=== PATIENT | male | born 1960 | race African-American/Black ===

== ENCOUNTER 2018-07-25 18:58 | Inpatient (IN) | payer MEDICAID, OTHER ==
[~2018-07-25] VITALS: Ht 177.8 cm; Wt 60.8 kg
[~2018-07-25 18:58] MED LIST: CYM20 PO; IRON1CAP21 PO
[2018-07-25 19:58] LABS: BASOPHILS % 0.6 % (0.0-2.0); EOSINOPHILS % 2.3 % (0.0-5.0); HEMATOCRIT. 39.3 % (42.0-52.0); HEMOGLOBIN. 13.4 g/dL (14.0-18.0); LYMPHOCYTES % 41.4 % (20.0-50.0); MEAN CORPUSCULAR HEMOGLOBIN 34.2 pg (28.0-32.0); MEAN CORPUSCULAR VOLUME 100.6 fL (80.0-94.0); MEAN PLATELET VOLUME 7.6 fl (7.4-10.4); MONOCYTES % 11.4 % (2.0-8.0); NEUTROPHILS % 44.3 % (40.0-76.0); PLATELET 284 x1000/uL (130-400); RED BLOOD CELL COUNT 3.91 mill/uL (4.7-6.1); RED CELL DISTRIBUTION WIDTH 16.6 % (11.6-14.6)
[2018-07-25 20:04] LABS: CHLORIDE 106 mEq/L (98-107)
[2018-07-25] MEDS ORDERED: ACETAMINOPHEN WITH CODEINE 300/30MG TABLET PO ONE (20:45)
[2018-07-25] MEDS ORDERED: POTASSIUM CHLORIDE 20MEQ TABLET SR PO ONE (20:45)
[2018-07-25 22:23] VITALS: BP 132/88
[2018-07-25 22:29] VITALS: BP 132/88
[2018-07-25] MEDS ORDERED: QUET200T PO (23:32)
[2018-07-25] MEDS ORDERED: AMLO5TAB88 PO (23:33)
[2018-07-26] VITALS: BP 114/64
[2018-07-26] MEDS ORDERED: ONDANSETRON HCL 4MG/2ML INJ IV PRN (01:45)
[2018-07-26] MEDS ORDERED: GUAIFENESIN 200MG/10ML SUGAR FREE UDC PO PRN (01:45)
[2018-07-26] MEDS ORDERED: DOCUSATE SODIUM 100MG CAPSULE PO PRN (01:45)
[2018-07-26] MEDS ORDERED: HYDROCODONE/ACETAMINOPHEN 5/325MG TABLET PO PRN (01:45)
[2018-07-26] MEDS ORDERED: ACETAMINOPHEN 325MG TABLET PO PRN (01:45)
[2018-07-26] MEDS ORDERED: IPRATROPIUM/ALBUTEROL 0.5-3(2.5)MG/3ML NEB INH PRN (01:45)
[2018-07-26] MEDS ORDERED: CLONIDINE 0.1MG TABLET PO PRN (01:45)
[2018-07-26] MEDS ORDERED: MAGNESIUM/ALUMINUM HYDROXIDE/SIMETHICONE 30ML UDC PO PRN (01:45)
[2018-07-26 04:00] VITALS: BP 127/85
[2018-07-26 08:00] VITALS: BP 117/75
[2018-07-26] MEDS ORDERED: PNEUMOCOCCAL 23-VAL P-SAC VAC 0.5 ML IM ONE (08:00)
[2018-07-26] MEDS ORDERED: ENOXAPARIN 40MG/0.4ML SYR SUBCUT SCH (09:00)
[2018-07-26] MEDS ORDERED: ASPIRIN 81MG EC TABLET PO SCH (09:00)
[2018-07-26] MEDS ORDERED: INFLUENZA VIRUS VACCINE(AFLURIA) 0.5ML SYR IM ONE (10:00)
[2018-07-26 10:12] LABS: BASOPHILS % 1.6 % (0.0-2.0); EOSINOPHILS % 3.3 % (0.0-5.0); HEMATOCRIT. 42.8 % (42.0-52.0); HEMOGLOBIN. 14.7 g/dL (14.0-18.0); LYMPHOCYTES % 37.1 % (20.0-50.0); MEAN CORPUSCULAR HEMOGLOBIN 34.7 pg (28.0-32.0); MEAN CORPUSCULAR VOLUME 101.1 fL (80.0-94.0); MEAN PLATELET VOLUME 7.7 fl (7.4-10.4); MONOCYTES % 11.3 % (2.0-8.0); NEUTROPHILS % 46.7 % (40.0-76.0); PLATELET 311 x1000/uL (130-400); RED BLOOD CELL COUNT 4.24 mill/uL (4.7-6.1); RED CELL DISTRIBUTION WIDTH 16.9 % (11.6-14.6)
[2018-07-26 10:41] LABS: CHLORIDE 107 mEq/L (98-107)
[2018-07-26 10:50] LABS: HDL CHOLESTEROL 53 mg/dL (40-59)
[2018-07-26 10:55] LABS: CREATINE KINASE 133 IU/L (39-308)
[2018-07-26 10:56] LABS: CREATINE KINASE MB FRACTION < 1.0 ng/mL (0.5-3.6)
[2018-07-26 11:15] LABS: LDL CHOLESTEROL 79 mg/dL (5-100)
[2018-07-26 12:00] VITALS: BP 122/79
[2018-07-26 13:01] VITALS: BP 127/85
[2018-07-26] MEDS ORDERED: REGADENOSON 0.4 MG/5 ML IV NR (14:00)
[2018-07-26 15:54] LABS: CREATINE KINASE 135 IU/L (39-308)
[2018-07-26 15:55] LABS: CREATINE KINASE MB FRACTION 1.1 ng/mL (0.5-3.6)
[2018-07-26] MEDS ORDERED: QUETIAPINE FUMARATE 100MG TABLET PO SCH (21:00)
== END 2018-07-26 15:21 | disposition left against medical advice (07) | DRG 203 ==
LOC: ER 19:23 → 5WST 20:51 → EDBEDREQ 20:58 → ENRESERV 21:43
PROVIDERS: ADMIT Internal Medicine; ATTEND Internal Medicine
DX: R07.9 Chest pain, unspecified (principal); E44.1 Mild protein-calorie malnutrition; D64.9 Anemia, unspecified; E11.9 Type 2 diabetes mellitus without complications; E87.6 Hypokalemia; F17.200 Nicotine dependence, unspecified, uncomplicated; Z53.21 Procedure and treatment not carried out due to patient leaving prior to being seen by health care provider; I10 Essential (primary) hypertension; F32.9 Major depressive disorder, single episode, unspecified; Z79.899 Other long term (current) drug therapy; Z98.84 Bariatric surgery status; Z71.6 Tobacco abuse counseling; Z68.1 Body mass index [BMI] 19.9 or less, adult
CPT/HCPCS: 36415; 71045; 80048; 80053; 80061; 82550; 82553; 83036; 83735; 84443; 84484; 85025; 90686; 90732; 93005; 93306; 93970; 96372; 99285; J1650

== ENCOUNTER 2018-08-03 17:50 | Emergency (ER) | payer OTHER ==
[~2018-08-03] VITALS: Ht 177.8 cm; Wt 61.0 kg
[~2018-08-03 17:50] MED LIST changes: +AMLO5TAB88 PO; -CYM20 PO; -IRON1CAP21 PO; +QUET200T PO
[2018-08-03 18:03] VITALS: BP 129/92
[2018-08-03] MEDS ORDERED: ACETAMINOPHEN 500MG TABLET PO ONE (20:45)
== END 2018-08-03 20:56 | disposition home or self-care (01) ==
LOC: ER 17:50
DX: R04.0 Epistaxis (principal); D64.9 Anemia, unspecified; E11.9 Type 2 diabetes mellitus without complications; I10 Essential (primary) hypertension; F17.200 Nicotine dependence, unspecified, uncomplicated
CPT/HCPCS: 99282

== ENCOUNTER 2019-07-30 10:40 | Emergency (ER) | payer OTHER ==
[~2019-07-30] VITALS: Ht 180.3 cm; Wt 60.0 kg
[2019-07-30 12:52] VITALS: BP 156/89
== END 2019-07-30 12:53 | disposition home or self-care (01) ==
LOC: ER 10:40
DX: B34.9 Viral infection, unspecified (principal); J34.89 Other specified disorders of nose and nasal sinuses; D64.9 Anemia, unspecified; F32.9 Major depressive disorder, single episode, unspecified; E11.9 Type 2 diabetes mellitus without complications; I10 Essential (primary) hypertension; Z98.890 Other specified postprocedural states; F17.200 Nicotine dependence, unspecified, uncomplicated
CPT/HCPCS: 99282

== ENCOUNTER 2020-06-15 20:50 | Emergency (ER) | payer OTHER ==
[~2020-06-15] VITALS: Ht 180.3 cm; Wt 64.0 kg
[2020-06-15] MEDS ORDERED: KETOROLAC 30MG/ML VIAL IV STA (23:07)
[2020-06-15] MEDS ORDERED: SODIUM CHLORIDE 0.9% 1,000 ML IV ONE (23:07)
[2020-06-15 23:57] LABS: BASOPHILS % 1.7 % (0.0-2.0); EOSINOPHILS % 1.3 % (0.0-5.0); HEMATOCRIT. 36.9 % (42.0-52.0); HEMOGLOBIN. 12.8 g/dL (14.0-18.0); LYMPHOCYTES % 37.3 % (20.0-50.0); MEAN CORPUSCULAR HEMOGLOBIN 33.9 pg (28.0-32.0); MEAN CORPUSCULAR VOLUME 97.5 fL (80.0-94.0); MEAN PLATELET VOLUME 7.6 fl (7.4-10.4); MONOCYTES % 12.3 % (2.0-8.0); NEUTROPHILS % 47.4 % (40.0-76.0); PLATELET 344 x1000/uL (130-400); RED BLOOD CELL COUNT 3.78 mill/uL (4.7-6.1); RED CELL DISTRIBUTION WIDTH 15.7 % (11.6-14.6)
[2020-06-16 00:05] LABS: CHLORIDE 107 mEq/L (98-107)
[2020-06-16 00:10] LABS: ETHANOL BLOOD < 10 mg/dL
[2020-06-16 01:30] VITALS: BP 144/87
[2020-06-16 01:33] LABS: CLARITY URINE CLEAR (CLEAR); COLOR URINE YELLOW (YELLOW); KETONES URINE NEGATIVE (NEGATIVE); LEUKOCYTE ESTERASE URINE NEGATIVE (NEGATIVE); NITRITE URINE NEGATIVE (NEGATIVE); OCCULT BLOOD URINE NEGATIVE (NEGATIVE); PROTEIN URINE NEGATIVE (NEGATIVE); SPECIFIC GRAVITY URINE 1.023 (1.005-1.030)
[2020-06-16 01:45] LABS: *AMPHETAMINES SCREEN URINE NEGATIVE (NEGATIVE); *BARBITURATES SCREEN URINE NEGATIVE (NEGATIVE); *BENZODIAZEPINES SCREEN URINE NEGATIVE (NEGATIVE)
[2020-06-16 01:46] LABS: *COCAINE SCREEN URINE NEGATIVE (NEGATIVE); CANNABINOID URINE SCREEN NEGATIVE (NEGATIVE); METHADONE URINE SCREEN NEGATIVE (NEGATIVE); OPIATES URINE SCREEN PRESUMTIVE POSITIVE (NEGATIVE); PHENCYCLIDINE URINE SCREEN NEGATIVE (NEGATIVE)
[2020-06-16] MEDS ORDERED: IOHEXOL-300 100 ML BOTTLE ONE (06:36)
== END 2020-06-16 02:25 | disposition home or self-care (01) ==
LOC: ER 21:05
DX: N43.3 Hydrocele, unspecified (principal); R10.32 Left lower quadrant pain; E11.9 Type 2 diabetes mellitus without complications; I10 Essential (primary) hypertension
CPT/HCPCS: 36415; 74177; 76870; 80053; 80305; 80320; 81003; 83605; 83690; 84145; 85025; 86850; 86900; 86901; 87040; 93005; 93976; 96361; 96374; 99285; J1885; J7030; Q9967; G0480

== ENCOUNTER 2022-05-28 02:09 | Emergency (ER) | payer MEDICAID, OTHER ==
[~2022-05-28] VITALS: Ht 180.3 cm; Wt 57.3 kg
[2022-05-28 02:17] VITALS: BP 126/92
== END 2022-05-28 05:19 | disposition home or self-care (01) ==
LOC: ER 02:09
DX: R04.0 Epistaxis (principal); E11.9 Type 2 diabetes mellitus without complications; I10 Essential (primary) hypertension
CPT/HCPCS: 30901; 99282; 99284

== ENCOUNTER 2023-12-02 14:13 | Emergency (ER) | payer MEDICAID ==
[~2023-12-02] VITALS: Ht 180.3 cm; Wt 58.0 kg
[2023-12-02 14:19] VITALS: BP 124/97; PULSE 105; RESP 19; TEMP 98; O2SAT 99
== END 2023-12-02 16:02 | disposition left against medical advice (07) ==
LOC: ER 14:13
DX: J34.89 Other specified disorders of nose and nasal sinuses (principal); Z53.21 Procedure and treatment not carried out due to patient leaving prior to being seen by health care provider
CPT/HCPCS: 99281

== ENCOUNTER 2025-08-26 13:33 | Inpatient (IN) | payer MEDICAID ==
[~2025-08-26] VITALS: Ht 180.3 cm; Wt 58.3 kg
[2025-08-26 14:28] LABS: BASOPHILS % 1.3 % (0.0-2.0); EOSINOPHILS % 2.3 % (0.0-5.0); HEMATOCRIT. 39.1 % (42.0-52.0); HEMOGLOBIN. 13.0 g/dL (14.0-18.0); LYMPHOCYTES % 14.7 % (20.0-50.0); MEAN PLATELET VOLUME 7.6 fl (7.4-10.4); MONOCYTES % 12.9 % (2.0-8.0); NEUTROPHILS % 68.8 % (40.0-76.0); PLATELET 347 x1000/uL (130-400); RED BLOOD CELL COUNT 3.99 mill/uL (4.7-6.1); RED CELL DISTRIBUTION WIDTH 14.4 % (11.6-14.6)
[2025-08-26 14:45] LABS: CREATININE 1.0 mg/dL (0.6-1.3); UREA NITROGEN BLOOD 12 mg/dL (9-23)
[2025-08-26 14:46] LABS: TROPONIN I HIGH SENSITIVITY 15 ng/L (3.0-53)
[2025-08-26 14:47] LABS: ASPARTATE AMINOTRANSFERASE 21 IU/L (<34); BILIRUBIN DIRECT 0.1 mg/dL (<=3.0); BILIRUBIN TOTAL 0.3 mg/dL (0.1-1.0); PROTEIN TOTAL 7.0 g/dL (6.0-8.3)
[2025-08-26] MEDS: IPRATROPIUM/ALBUTEROL 0.5-3(2.5)MG/3ML NEB HHN ONE ×2 (15:45→17:35)
[2025-08-26] MEDS: IOHEXOL-350 100 ML BOTTLE ONE (16:22)
[2025-08-26 17:21] LABS: TROPONIN I HIGH SENSITIVITY 17 ng/L (3.0-53)
[2025-08-26 17:35] VITALS: PULSE 88; RESP 18; O2SAT 98
[2025-08-26] MEDS: AZITHROMYCIN 500MG/250ML 250 ML IV SCH (17:52)
[2025-08-26 20:00] VITALS: BP_SYST 116; BP_DIAS 67; BP_DIAS 68; PULSE 92; PULSE 98; RESP 18; TEMP 37.1964; TEMP 37.2; O2SAT 98
[2025-08-26] MEDS ORDERED: HYDROCODONE/ACETAMINOPHEN 5/325MG TABLET PO PRN (22:00)
[2025-08-26] MEDS ORDERED: ONDANSETRON HCL 4MG/2ML INJ IV PRN (22:00)
[2025-08-26] MEDS ORDERED: IOHEXOL-350 100 ML BOTTLE ONE (22:11)
[2025-08-27] VITALS: BP 122/79; PULSE 78; RESP 19; TEMP 36.7
[2025-08-27 02:03] LABS: HEMATOCRIT. 37.0 % (42.0-52.0); HEMOGLOBIN. 12.2 g/dL (14.0-18.0); MEAN PLATELET VOLUME 7.9 fl (7.4-10.4); PLATELET 302 x1000/uL (130-400); RED BLOOD CELL COUNT 3.80 mill/uL (4.7-6.1); RED CELL DISTRIBUTION WIDTH 15.0 % (11.6-14.6)
[2025-08-27 02:07] LABS: CREATININE 0.9 mg/dL (0.6-1.3)
[2025-08-27 02:08] LABS: UREA NITROGEN BLOOD 11 mg/dL (9-23)
[2025-08-27 04:00] VITALS: BP 124/78; RESP 18; TEMP 36.2
[2025-08-27] MEDS: BUPROPION HCL 75MG TABLET PO SCH ×2 (09:00→22:00)
[2025-08-27] MEDS: METHYLPREDNISOLONE SOD SUCC 40MG/ML (ACT-O-VIAL) IV SCH (09:30)
[2025-08-27] MEDS: ERGOCALCIFEROL 50000UNITS CAPSULE PO SCH (10:15)
[2025-08-27] MEDS: AMLODIPINE 5MG TABLET PO SCH (10:16)
[2025-08-27] MEDS: ENOXAPARIN 40MG/0.4ML SYR SUBCUT SCH (10:17)
[2025-08-27 14:22] LABS: BAND% 1.0 % (1.0-6.0); EOSINOPHILS % MANUAL 1.0 % (0.0-5.0); LYMPHOCYTES % MANUAL 27.0 % (20.0-50.0); MONOCYTES % MANUAL 22.0 % (2.0-8.0); NEUTROPHILS % MANUAL 49.0 % (45.0-75.0); PLATELET ESTIMATE NORMAL
[2025-08-27 16:00] VITALS: BP 112/81; PULSE 93; RESP 18; TEMP 36.1; O2SAT 99
[2025-08-27] MEDS: PREGABALIN 75MG CAPSULE PO SCH (18:57)
[2025-08-27] MEDS: QUETIAPINE FUMARATE 50MG TABLET PO SCH (18:58)
[2025-08-27 20:00] VITALS: BP 111/69; PULSE 96; RESP 19; TEMP 36.6; O2SAT 100
[2025-08-27 21:13] VITALS: PULSE 79; RESP 20; O2SAT 99
[2025-08-27] MEDS: IPRATROPIUM/ALBUTEROL 0.5-3(2.5)MG/3ML NEB HHN SCH (21:13)
[2025-08-27] MEDS: BUDESONIDE 0.5MG/2ML NEB HHN SCH (21:13)
[2025-08-28] VITALS (11 sets, daily range): BP systolic 94–152; BP diastolic 67–93; PULSE 55–95; RESP 15–20; TEMP 36.2–37.1; O2SAT 95–100
[2025-08-28] MEDS ORDERED: MUPI22OI2 TP (04:51)
[2025-08-28] MEDS ORDERED: MIRT-89 PO (04:51)
[2025-08-28] MEDS ORDERED: VARE1TAB21 PO (04:51)
[2025-08-28] MEDS ORDERED: DULO30CA52 PO (04:51)
[2025-08-28] MEDS ORDERED: CHOL125C6 (04:51)
[2025-08-28] MEDS ORDERED: BUPR-46 PO (04:51)
[2025-08-28] MEDS ORDERED: PREG75CA PO (04:51)
[2025-08-28] MEDS: IPRATROPIUM/ALBUTEROL 0.5-3(2.5)MG/3ML NEB HHN SCH (09:45)
[2025-08-28] MEDS: POTASSIUM CHLORIDE 20MEQ TABLET SR PO NR (13:42)
[2025-08-28] MEDS ORDERED: NALOXONE HCL 0.4MG/ML VIAL IV PRN (13:45)
[2025-08-28] MEDS ORDERED: METH4TAB95 MT (15:11)
[2025-08-28] MEDS ORDERED: ALBU18HF2 IH (15:11)
[2025-08-29] MEDS ORDERED: ENOXAPARIN 30MG/0.3ML SYR SUBCUT SCH (09:00)
== END 2025-08-28 16:15 | disposition home or self-care (01) | DRG 140 ==
LOC: ER 13:33 → EDBEDREQ 16:54 → 6WST 21:00
PROVIDERS: ADMIT Internal Medicine; ATTEND Internal Medicine
DX: J44.1 Chronic obstructive pulmonary disease with (acute) exacerbation (principal); D64.9 Anemia, unspecified; E11.9 Type 2 diabetes mellitus without complications; F32.A Depression, unspecified; F17.210 Nicotine dependence, cigarettes, uncomplicated; I10 Essential (primary) hypertension; H40.9 Unspecified glaucoma; Z71.6 Tobacco abuse counseling; Z98.84 Bariatric surgery status
CPT/HCPCS: 36415; 71045; 71275; 80048; 80076; 83880; 84484; 85025; 85379; 93005; 94070; 94640; 94664; 98960; 99285; J0456; J1650; J2919; Q9967